=== PATIENT | male | born 1965 | race Caucasian/White ===

== ENCOUNTER 2020-05-30 10:00 | Emergency (ER) | payer MEDICAID ==
[~2020-05-30] VITALS: Ht 162.6 cm; Wt 75.0 kg
[2020-05-30 10:28] VITALS: BP 135/77
== END 2020-05-30 12:23 | disposition home or self-care (01) ==
LOC: ER 10:35
DX: T78.40XA Allergy, unspecified, initial encounter (principal); X58.XXXA Exposure to other specified factors, initial encounter
CPT/HCPCS: 99283

== ENCOUNTER 2021-03-17 15:39 | Inpatient (IN) | payer MEDICAID, OTHER ==
[~2021-03-17] VITALS: Ht 165.1 cm; Wt 74.8 kg
[2021-03-17] MEDS ORDERED: CEFAZOLIN 1000MG PREMIX 50 ML IV NR (17:56)
[2021-03-17] MEDS ORDERED: ACETAMINOPHEN 325MG TABLET PO NR (17:56)
[2021-03-17 18:31] LABS: CLARITY URINE CLEAR (CLEAR); COLOR URINE YELLOW (YELLOW); KETONES URINE NEGATIVE (NEGATIVE); LEUKOCYTE ESTERASE URINE NEGATIVE (NEGATIVE); NITRITE URINE NEGATIVE (NEGATIVE); OCCULT BLOOD URINE NEGATIVE (NEGATIVE); PROTEIN URINE NEGATIVE (NEGATIVE); SPECIFIC GRAVITY URINE 1.005 (1.005-1.030); UROBILINOGEN URINE 0.2 E.U./dL (0.2-1.0)
[2021-03-17 18:59] LABS: CHLORIDE 99 mEq/L (98-107)
[2021-03-17 20:17] LABS: BASOPHILS % 0.7 % (0.0-2.0); EOSINOPHILS % 2.4 % (0.0-5.0); HEMATOCRIT. 39.7 % (42.0-52.0); HEMOGLOBIN. 13.7 g/dL (14.0-18.0); LYMPHOCYTES % 17.5 % (20.0-50.0); MEAN CORPUSCULAR HEMOGLOBIN 31.6 pg (28.0-32.0); MEAN CORPUSCULAR VOLUME 91.8 fL (80.0-94.0); MEAN PLATELET VOLUME 8.5 fl (7.4-10.4); MONOCYTES % 10.1 % (2.0-8.0); NEUTROPHILS % 69.3 % (40.0-76.0); PLATELET 220 x1000/uL (130-400); RED BLOOD CELL COUNT 4.32 mill/uL (4.7-6.1); RED CELL DISTRIBUTION WIDTH 13.1 % (11.6-14.6)
[2021-03-17] MEDS ORDERED: ACETAMINOPHEN 325MG TABLET PO PRN (23:00)
[2021-03-17] MEDS ORDERED: LORAZEPAM 0.5MG TABLET PO PRN (23:00)
[2021-03-17] MEDS ORDERED: MAGNESIUM/ALUMINUM HYDROXIDE/SIMETHICONE 30ML UDC PO PRN (23:00)
[2021-03-17] MEDS: ENOXAPARIN 40MG/0.4ML SYR SUBCUT SCH (23:00)
[2021-03-17] MEDS ORDERED: IPRATROPIUM/ALBUTEROL 0.5-3(2.5)MG/3ML NEB NEB PRN (23:00)
[2021-03-17] MEDS ORDERED: GUAIFENESIN 200MG/10ML SUGAR FREE UDC PO PRN (23:00)
[2021-03-17] MEDS ORDERED: DOCUSATE SODIUM 100MG CAPSULE PO PRN (23:00)
[2021-03-17] MEDS: PIPERACILLIN/TAZ 3.375G PREMIX 50 ML IV SCH (23:00)
[2021-03-17] MEDS ORDERED: NITROGLYCERIN 0.4MG TABLET SL SL PRN (23:00)
[2021-03-17] MEDS ORDERED: ZOLPIDEM TARTRATE 5MG TABLET PO PRN (23:00)
[2021-03-17] MEDS ORDERED: ONDANSETRON HCL 4MG/2ML INJ IV PRN (23:00)
[2021-03-18 00:01] LABS: ETHANOL BLOOD 15 mg/dL
[2021-03-18 00:04] LABS: TOTAL IRON BINDING CAPACITY 306 ug/dL (250-450)
[2021-03-18] MEDS ORDERED: VANCOMYCIN 1 G PREMIX 200 ML IV NR (00:15)
[2021-03-18 01:15] LABS: FOLIC ACID (FOLATE) SERUM 15.5 ng/mL (>5.38)
[2021-03-18 05:23] LABS: HEMATOCRIT. 40.6 % (42.0-52.0); HEMOGLOBIN. 14.1 g/dL (14.0-18.0); MEAN CORPUSCULAR VOLUME 92.4 fL (80.0-94.0); MEAN PLATELET VOLUME 7.5 fl (7.4-10.4); PLATELET 210 x1000/uL (130-400); RED BLOOD CELL COUNT 4.39 mill/uL (4.7-6.1); RED CELL DISTRIBUTION WIDTH 13.1 % (11.6-14.6)
[2021-03-18 05:27] LABS: CHLORIDE 104 mEq/L (98-107)
[2021-03-18 05:33] LABS: PHOSPHORUS 3.6 mg/dL (2.5-4.9)
[2021-03-18] MEDS: PIPERACILLIN/TAZ 3.375G PREMIX 50 ML IV SCH (06:01)
[2021-03-18] MEDS: ZINC SULFATE 220 MG ( 50 ) CAPSULE PO SCH (07:54)
[2021-03-18] MEDS: VANCOMYCIN 750 MG PREMIX 150 ML IV SCH ×3 (07:54→21:10)
[2021-03-18] MEDS: ASCORBIC ACID 500 MG TABLET PO SCH ×2 (07:54→20:54)
[2021-03-18] MEDS: FAMOTIDINE 20MG TABLET PO SCH ×2 (07:54→20:54)
[2021-03-18 10:00] VITALS: BP 142/79
[2021-03-18] MEDS ORDERED: DEXTROSE 50% WATER 50ML SYRINGE IV PRN (10:15)
[2021-03-18] MEDS: BLOOD SUGAR DIAGNOSTIC STRIP TEST SCH ×3 (12:08→20:54)
[2021-03-18] MEDS: INSULIN LISPRO 100 UNITS/ML SUBCUT SCH ×3 (13:16→21:00)
[2021-03-18 16:00] VITALS: BP 135/82
[2021-03-18 16:02] LABS: PLATELET ESTIMATE NORMAL
[2021-03-18] MEDS: PIPERACILLIN/TAZOBACTAM 3.375G in DEXT 5% WATER 50ML IV SCH ×2 (16:03→21:11)
[2021-03-18 20:00] VITALS: BP 130/86
[2021-03-18] MEDS: KETOROLAC 15MG/ML VIAL IV PRN (21:11)
[2021-03-18] MEDS: ENOXAPARIN 40MG/0.4ML SYR SUBCUT SCH (23:23)
[2021-03-19] VITALS: BP 148/81
[2021-03-19 04:00] VITALS: BP 114/77
[2021-03-19] MEDS: PIPERACILLIN/TAZOBACTAM 3.375G in DEXT 5% WATER 50ML IV SCH ×3 (06:11→22:01)
[2021-03-19] MEDS: VANCOMYCIN 750 MG PREMIX 150 ML IV SCH (06:11)
[2021-03-19] MEDS: BLOOD SUGAR DIAGNOSTIC STRIP TEST SCH ×4 (07:52→21:00)
[2021-03-19 08:00] VITALS: BP 126/77
[2021-03-19] MEDS: ZINC SULFATE 220 MG ( 50 ) CAPSULE PO SCH (09:03)
[2021-03-19] MEDS: ASCORBIC ACID 500 MG TABLET PO SCH ×2 (09:03→22:00)
[2021-03-19] MEDS: FAMOTIDINE 20MG TABLET PO SCH (09:03)
[2021-03-19] MEDS: INSULIN LISPRO 100 UNITS/ML SUBCUT SCH ×4 (09:07→22:14)
[2021-03-19] MEDS: SODIUM CHLORIDE 0.9% 1,000 ML IV SCH ×2 (10:45→22:21)
[2021-03-19 12:00] VITALS: BP 130/77
[2021-03-19 15:11] LABS: CANNABINOID URINE SCREEN NEGATIVE (NEGATIVE); METHADONE URINE SCREEN NEGATIVE (NEGATIVE); OPIATES URINE SCREEN NEGATIVE (NEGATIVE); PHENCYCLIDINE URINE SCREEN NEGATIVE (NEGATIVE)
[2021-03-19 15:12] LABS: *AMPHETAMINES SCREEN URINE NEGATIVE (NEGATIVE); *BARBITURATES SCREEN URINE NEGATIVE (NEGATIVE); *BENZODIAZEPINES SCREEN URINE NEGATIVE (NEGATIVE); *COCAINE SCREEN URINE NEGATIVE (NEGATIVE)
[2021-03-19 16:00] VITALS: BP 141/80
[2021-03-19 20:00] VITALS: BP 153/81
[2021-03-19] MEDS: ENOXAPARIN 30MG/0.3ML SYR SUBCUT SCH (22:01)
[2021-03-20] VITALS: BP 146/86
[2021-03-20 04:00] VITALS: BP 154/82
[2021-03-20] MEDS: PIPERACILLIN/TAZOBACTAM 3.375G in DEXT 5% WATER 50ML IV SCH (06:23)
[2021-03-20] MEDS: SODIUM CHLORIDE 0.9% 1,000 ML IV SCH ×2 (06:24→15:15)
[2021-03-20] MEDS: BLOOD SUGAR DIAGNOSTIC STRIP TEST SCH ×4 (06:35→21:48)
[2021-03-20 07:31] LABS: HEMATOCRIT. 38.9 % (42.0-52.0); HEMOGLOBIN. 13.5 g/dL (14.0-18.0); MEAN CORPUSCULAR HEMOGLOBIN 31.9 pg (28.0-32.0); MEAN CORPUSCULAR VOLUME 91.8 fL (80.0-94.0); MEAN PLATELET VOLUME 7.8 fl (7.4-10.4); PLATELET 228 x1000/uL (130-400); RED BLOOD CELL COUNT 4.24 mill/uL (4.7-6.1); RED CELL DISTRIBUTION WIDTH 12.7 % (11.6-14.6)
[2021-03-20 07:43] LABS: CHLORIDE 100 mEq/L (98-107)
[2021-03-20 07:50] LABS: PHOSPHORUS 5.5 mg/dL (2.5-4.9)
[2021-03-20] MEDS: INSULIN LISPRO 100 UNITS/ML SUBCUT SCH ×4 (07:50→21:00)
[2021-03-20 08:00] VITALS: BP 159/97
[2021-03-20] MEDS: ZINC SULFATE 220 MG ( 50 ) CAPSULE PO SCH (09:04)
[2021-03-20] MEDS: ASCORBIC ACID 500 MG TABLET PO SCH ×2 (09:05→21:47)
[2021-03-20] MEDS: FAMOTIDINE 20MG TABLET PO SCH (09:05)
[2021-03-20] MEDS: KETOROLAC 15MG/ML VIAL IV PRN (09:06)
[2021-03-20 12:00] VITALS: BP 161/85
[2021-03-20] MEDS ORDERED: SODIUM POLYSTYRENE SULFONATE 15 G/60 ML BOT PO NR (13:00)
[2021-03-20 16:00] VITALS: BP 168/80
[2021-03-20 16:04] LABS: PLATELET ESTIMATE NORMAL
[2021-03-20 19:03] LABS: CLARITY URINE CLEAR (CLEAR); COLOR URINE YELLOW (YELLOW); KETONES URINE NEGATIVE (NEGATIVE); LEUKOCYTE ESTERASE URINE NEGATIVE (NEGATIVE); NITRITE URINE NEGATIVE (NEGATIVE); OCCULT BLOOD URINE NEGATIVE (NEGATIVE); PROTEIN URINE NEGATIVE (NEGATIVE); SPECIFIC GRAVITY URINE 1.006 (1.005-1.030); UROBILINOGEN URINE 0.2 E.U./dL (0.2-1.0)
[2021-03-20 20:00] VITALS: BP 170/81
[2021-03-20] MEDS: ENOXAPARIN 30MG/0.3ML SYR SUBCUT SCH (21:47)
[2021-03-20] MEDS: PIPERACILLIN/TAZOBACTAM 3.375 G in DEXTROSE 5% WATER 50 ML IV SCH (21:49)
[2021-03-21] VITALS: BP 173/93
[2021-03-21 04:00] VITALS: BP 155/79
[2021-03-21] MEDS: CLONIDINE 0.1MG TABLET PO PRN (04:18)
[2021-03-21] MEDS: SODIUM CHLORIDE 0.9% 1,000 ML IV SCH ×4 (04:19→22:41)
[2021-03-21] MEDS: BLOOD SUGAR DIAGNOSTIC STRIP TEST SCH ×4 (07:40→21:00)
[2021-03-21 08:00] VITALS: BP 150/82
[2021-03-21] MEDS: ZINC SULFATE 220 MG ( 50 ) CAPSULE PO SCH (09:20)
[2021-03-21] MEDS: FAMOTIDINE 20MG TABLET PO SCH (09:21)
[2021-03-21] MEDS: ASCORBIC ACID 500 MG TABLET PO SCH ×2 (09:21→22:41)
[2021-03-21] MEDS: PIPERACILLIN/TAZOBACTAM 3.375 G in DEXTROSE 5% WATER 50 ML IV SCH ×2 (09:28→22:41)
[2021-03-21] MEDS: ACETAMINOPHEN 325MG TABLET PO PRN ×2 (10:21→22:46)
[2021-03-21] MEDS: INSULIN LISPRO 100 UNITS/ML SUBCUT SCH ×4 (10:24→21:00)
[2021-03-21] MEDS: AMLODIPINE 5MG TABLET PO SCH (11:03)
[2021-03-21 12:00] VITALS: BP 156/84
[2021-03-21 16:00] VITALS: BP 149/83
[2021-03-21 20:00] VITALS: BP 151/84
[2021-03-21] MEDS: ENOXAPARIN 30MG/0.3ML SYR SUBCUT SCH (22:42)
[2021-03-22] VITALS: BP 157/80
[2021-03-22 04:00] VITALS: BP 150/79
[2021-03-22 05:45] LABS: EOSINOPHILS % 2.7 % (0.0-5.0); HEMATOCRIT. 36.6 % (42.0-52.0); HEMOGLOBIN. 12.8 g/dL (14.0-18.0); LYMPHOCYTES % 17.5 % (20.0-50.0); MEAN CORPUSCULAR HEMOGLOBIN 31.8 pg (28.0-32.0); MEAN PLATELET VOLUME 7.6 fl (7.4-10.4); MONOCYTES % 14.9 % (2.0-8.0); NEUTROPHILS % 63.9 % (40.0-76.0); PLATELET 241 x1000/uL (130-400); RED BLOOD CELL COUNT 4.03 mill/uL (4.7-6.1); RED CELL DISTRIBUTION WIDTH 12.7 % (11.6-14.6)
[2021-03-22] MEDS: BLOOD SUGAR DIAGNOSTIC STRIP TEST SCH ×4 (06:27→20:58)
[2021-03-22] MEDS: SODIUM CHLORIDE 0.9% 1,000 ML IV SCH ×2 (06:58→15:48)
[2021-03-22] MEDS: INSULIN LISPRO 100 UNITS/ML SUBCUT SCH ×4 (06:59→21:16)
[2021-03-22 08:00] VITALS: BP 162/87
[2021-03-22] MEDS: AMLODIPINE 5MG TABLET PO SCH (09:06)
[2021-03-22] MEDS: FAMOTIDINE 20MG TABLET PO SCH (09:07)
[2021-03-22] MEDS: ZINC SULFATE 220 MG ( 50 ) CAPSULE PO SCH (09:07)
[2021-03-22] MEDS: ASCORBIC ACID 500 MG TABLET PO SCH ×2 (09:07→20:57)
[2021-03-22] MEDS: PIPERACILLIN/TAZOBACTAM 3.375 G in DEXTROSE 5% WATER 50 ML IV SCH ×2 (09:08→20:57)
[2021-03-22] MEDS: ACETAMINOPHEN 325MG TABLET PO PRN (09:14)
[2021-03-22 12:00] VITALS: BP 159/82
[2021-03-22 16:00] VITALS: BP 131/80
[2021-03-22 20:00] VITALS: BP 169/92
[2021-03-22] MEDS: ENOXAPARIN 30MG/0.3ML SYR SUBCUT SCH (20:57)
[2021-03-22] MEDS: CLONIDINE 0.1MG TABLET PO PRN (21:14)
[2021-03-23] VITALS (7 sets, daily range): BP systolic 142–164; BP diastolic 81–88
[2021-03-23] MEDS: SODIUM CHLORIDE 0.9% 1,000 ML IV SCH ×4 (01:34→23:48)
[2021-03-23] MEDS: ACETAMINOPHEN 325MG TABLET PO PRN ×2 (01:46→21:27)
[2021-03-23] MEDS: BLOOD SUGAR DIAGNOSTIC STRIP TEST SCH ×4 (06:20→21:15)
[2021-03-23] MEDS: INSULIN LISPRO 100 UNITS/ML SUBCUT SCH ×4 (07:27→21:23)
[2021-03-23] MEDS: AMLODIPINE 5MG TABLET PO SCH (09:27)
[2021-03-23] MEDS: ASCORBIC ACID 500 MG TABLET PO SCH ×2 (09:27→21:21)
[2021-03-23] MEDS: ZINC SULFATE 220 MG ( 50 ) CAPSULE PO SCH (09:27)
[2021-03-23] MEDS: FAMOTIDINE 20MG TABLET PO SCH (09:28)
[2021-03-23] MEDS: PIPERACILLIN/TAZOBACTAM 3.375 G in DEXTROSE 5% WATER 50 ML IV SCH (09:28)
[2021-03-23 12:22] LABS: BASOPHILS % 1.3 % (0.0-2.0); EOSINOPHILS % 2.5 % (0.0-5.0); HEMATOCRIT. 37.2 % (42.0-52.0); HEMOGLOBIN. 12.5 g/dL (14.0-18.0); LYMPHOCYTES % 12.9 % (20.0-50.0); MEAN CORPUSCULAR HEMOGLOBIN 30.9 pg (28.0-32.0); MEAN CORPUSCULAR VOLUME 91.8 fL (80.0-94.0); MEAN PLATELET VOLUME 7.6 fl (7.4-10.4); MONOCYTES % 11.7 % (2.0-8.0); NEUTROPHILS % 71.6 % (40.0-76.0); PLATELET 240 x1000/uL (130-400); RED BLOOD CELL COUNT 4.05 mill/uL (4.7-6.1); RED CELL DISTRIBUTION WIDTH 12.7 % (11.6-14.6)
[2021-03-23] MEDS: ENOXAPARIN 30MG/0.3ML SYR SUBCUT SCH (21:22)
[2021-03-24] VITALS: BP 152/82
[2021-03-24 04:00] VITALS: BP 158/88
[2021-03-24] MEDS: CLONIDINE 0.1MG TABLET PO PRN (06:14)
[2021-03-24] MEDS: BLOOD SUGAR DIAGNOSTIC STRIP TEST SCH ×4 (06:23→21:00)
[2021-03-24 07:07] LABS: BASOPHILS % 1.2 % (0.0-2.0); EOSINOPHILS % 2.6 % (0.0-5.0); HEMATOCRIT. 37.5 % (42.0-52.0); HEMOGLOBIN. 13.1 g/dL (14.0-18.0); LYMPHOCYTES % 14.5 % (20.0-50.0); MEAN CORPUSCULAR VOLUME 91.7 fL (80.0-94.0); MEAN PLATELET VOLUME 7.4 fl (7.4-10.4); MONOCYTES % 10.9 % (2.0-8.0); NEUTROPHILS % 70.8 % (40.0-76.0); PLATELET 259 x1000/uL (130-400); RED BLOOD CELL COUNT 4.08 mill/uL (4.7-6.1); RED CELL DISTRIBUTION WIDTH 12.9 % (11.6-14.6)
[2021-03-24 07:25] LABS: CHLORIDE 104 mEq/L (98-107)
[2021-03-24 07:41] LABS: PHOSPHORUS 5.7 mg/dL (2.5-4.9)
[2021-03-24] MEDS: INSULIN LISPRO 100 UNITS/ML SUBCUT SCH ×4 (07:50→21:42)
[2021-03-24 08:00] VITALS: BP 131/82
[2021-03-24] MEDS: ASCORBIC ACID 500 MG TABLET PO SCH ×2 (09:08→21:42)
[2021-03-24] MEDS: ZINC SULFATE 220 MG ( 50 ) CAPSULE PO SCH (09:08)
[2021-03-24] MEDS: FAMOTIDINE 20MG TABLET PO SCH (09:08)
[2021-03-24] MEDS: AMLODIPINE 5MG TABLET PO SCH (09:08)
[2021-03-24] MEDS: SODIUM CHLORIDE 0.9% 1,000 ML IV SCH ×2 (10:00→21:43)
[2021-03-24 12:00] VITALS: BP 166/81
[2021-03-24 16:00] VITALS: BP 140/80
[2021-03-24 20:27] VITALS: BP 156/80
[2021-03-24] MEDS: ENOXAPARIN 30MG/0.3ML SYR SUBCUT SCH (21:42)
[2021-03-25] VITALS: BP 130/84
[2021-03-25 04:00] VITALS: BP 136/84
[2021-03-25] MEDS: INSULIN LISPRO 100 UNITS/ML SUBCUT SCH ×4 (06:23→20:20)
[2021-03-25] MEDS: BLOOD SUGAR DIAGNOSTIC STRIP TEST SCH ×4 (06:23→20:20)
[2021-03-25 06:51] LABS: BASOPHILS % 1.2 % (0.0-2.0); HEMATOCRIT. 37.7 % (42.0-52.0); HEMOGLOBIN. 12.9 g/dL (14.0-18.0); MEAN CORPUSCULAR VOLUME 90.6 fL (80.0-94.0); MEAN PLATELET VOLUME 7.6 fl (7.4-10.4); MONOCYTES % 9.5 % (2.0-8.0); NEUTROPHILS % 74.3 % (40.0-76.0); PLATELET 281 x1000/uL (130-400); RED BLOOD CELL COUNT 4.16 mill/uL (4.7-6.1); RED CELL DISTRIBUTION WIDTH 12.8 % (11.6-14.6)
[2021-03-25 08:00] VITALS: BP 133/79
[2021-03-25] MEDS: AMLODIPINE 5MG TABLET PO SCH (08:55)
[2021-03-25] MEDS: ZINC SULFATE 220 MG ( 50 ) CAPSULE PO SCH (08:55)
[2021-03-25] MEDS: ASCORBIC ACID 500 MG TABLET PO SCH ×2 (08:55→20:20)
[2021-03-25] MEDS: FAMOTIDINE 20MG TABLET PO SCH (08:55)
[2021-03-25 12:00] VITALS: BP 134/77
[2021-03-25 16:00] VITALS: BP 139/78
[2021-03-25] MEDS: SODIUM CHLORIDE 0.9% 1,000 ML IV SCH (17:09)
[2021-03-25 20:00] VITALS: BP 135/90
[2021-03-25] MEDS: ENOXAPARIN 30MG/0.3ML SYR SUBCUT SCH (20:20)
[2021-03-26] VITALS: BP 155/90
[2021-03-26] MEDS: SODIUM CHLORIDE 0.9% 1,000 ML IV SCH (03:27)
[2021-03-26 04:00] VITALS: BP 116/61
[2021-03-26] MEDS: BLOOD SUGAR DIAGNOSTIC STRIP TEST SCH ×2 (06:34→12:20)
[2021-03-26] MEDS: INSULIN LISPRO 100 UNITS/ML SUBCUT SCH ×2 (06:34→12:34)
[2021-03-26 08:00] VITALS: BP 127/81
[2021-03-26] MEDS: ASCORBIC ACID 500 MG TABLET PO SCH (08:57)
[2021-03-26] MEDS: FAMOTIDINE 20MG TABLET PO SCH (08:57)
[2021-03-26] MEDS: ZINC SULFATE 220 MG ( 50 ) CAPSULE PO SCH (08:57)
[2021-03-26] MEDS: AMLODIPINE 5MG TABLET PO SCH (08:57)
[2021-03-26 11:51] VITALS: BP 121/79
[2021-03-26 12:00] VITALS: BP 129/75
== END 2021-03-26 13:05 | disposition home or self-care (01) | DRG 720 ==
LOC: ER 15:39 → EDBD 15:39 → MICUSO 20:27 → EDBEDREQ 21:06 → EDBEDREQTM 21:06 → 6EST 03-18 07:40
PROVIDERS: ADMIT Internal Medicine; ATTEND Internal Medicine
DX: A41.9 Sepsis, unspecified organism (principal); N17.0 Acute kidney failure with tubular necrosis; L03.116 Cellulitis of left lower limb; E87.1 Hypo-osmolality and hyponatremia; E11.9 Type 2 diabetes mellitus without complications; F10.10 Alcohol abuse, uncomplicated; Z79.4 Long term (current) use of insulin
CPT/HCPCS: 36415; 73630; 76770; 80048; 80053; 80202; 80305; 80320; 81003; 82550; 82575; 82607; 82746; 82962; 83036; 83540; 83550; 83605; 83735; 83880; 84100; 84145; 85025; 85651; 86140; 93970; 99285; J0690; J1650; J1815; J1885; J2543; J3370; J7030; J7060; G0480

== ENCOUNTER 2021-03-26 21:31 | Emergency (ER) | payer MEDICAID ==
[~2021-03-26] VITALS: Ht 157.5 cm; Wt 69.0 kg
[2021-03-26] MEDS ORDERED: ACETAMINOPHEN 325MG TABLET PO ONE (22:15)
[2021-03-26 22:46] VITALS: BP 135/71
== END 2021-03-26 22:48 | disposition home or self-care (01) ==
LOC: ER 21:31
DX: E11.65 Type 2 diabetes mellitus with hyperglycemia (principal); N17.9 Acute kidney failure, unspecified; E11.22 Type 2 diabetes mellitus with diabetic chronic kidney disease; N18.9 Chronic kidney disease, unspecified; R51.9 Headache, unspecified; Z71.89 Other specified counseling; Z46.81 Encounter for fitting and adjustment of insulin pump
CPT/HCPCS: 82962; 99282

== ENCOUNTER 2021-08-29 15:25 | Emergency (ER) | payer MEDICAID ==
[~2021-08-29] VITALS: Ht 165.1 cm; Wt 75.0 kg
[2021-08-29 15:38] VITALS: BP 114/74
[2021-08-29] MEDS ORDERED: CEPHALEXIN 250MG CAPSULE PO ONE (16:00)
[2021-08-29] MEDS ORDERED: IBUPROFEN 800MG TABLET PO ONE (16:00)
== END 2021-08-29 18:05 | disposition home or self-care (01) ==
LOC: ER 15:25
DX: S92.354A Nondisplaced fracture of fifth metatarsal bone, right foot, initial encounter for closed fracture (principal); E11.9 Type 2 diabetes mellitus without complications; Z88.2 Allergy status to sulfonamides; Z98.890 Other specified postprocedural states; W18.40XA Slipping, tripping and stumbling without falling, unspecified, initial encounter; Y93.89 Activity, other specified; Y92.89 Other specified places as the place of occurrence of the external cause; Y99.8 Other external cause status
CPT/HCPCS: 73610; 73630; 99284; Z7610

== ENCOUNTER 2021-09-07 13:27 | Emergency (ER) | payer MEDICAID ==
[~2021-09-07] VITALS: Ht 167.6 cm; Wt 60.0 kg
[2021-09-07] MEDS ORDERED: HYDROCODONE/ACETAMINOPHEN 5/325MG TABLET PO ONE (14:15)
[2021-09-07] MEDS ORDERED: HYDR-4001 MT (14:32)
[2021-09-07 15:13] VITALS: BP 125/67
== END 2021-09-07 15:17 | disposition home or self-care (01) ==
LOC: ER 13:27
DX: S92.351A Displaced fracture of fifth metatarsal bone, right foot, initial encounter for closed fracture (principal); S92.341A Displaced fracture of fourth metatarsal bone, right foot, initial encounter for closed fracture; X58.XXXA Exposure to other specified factors, initial encounter; Y93.89 Activity, other specified; Y92.89 Other specified places as the place of occurrence of the external cause; Y99.8 Other external cause status; E11.9 Type 2 diabetes mellitus without complications; Z88.2 Allergy status to sulfonamides
CPT/HCPCS: 99283